=== PATIENT | male | born 1940 | race Caucasian/White ===

== ENCOUNTER → 2017-03-03 | Outpatient (CLI) | payer OTHER | LOC: CIMAGING 13:55 | PROVIDERS: ATTEND Family Medicine | DX: R91.8 Other nonspecific abnormal finding of lung field (principal); N20.0 Calculus of kidney; I25.10 Atherosclerotic heart disease of native coronary artery without angina pectoris; Z85.46 Personal history of malignant neoplasm of prostate; Z87.891 Personal history of nicotine dependence | CPT/HCPCS: 71250-PO ==

== ENCOUNTER → 2018-02-19 | Outpatient (CLI) | payer OTHER | LOC: BHFA 09:30 | PROVIDERS: ATTEND Internal Medicine Interventional Cardiology | DX: I10 Essential (primary) hypertension (principal); E78.5 Hyperlipidemia, unspecified ==

== ENCOUNTER → 2018-03-02 | Outpatient (CLI) | payer OTHER | LOC: BHFA 15:30 | PROVIDERS: ATTEND Internal Medicine Cardiovascular Disease | DX: R07.9 Chest pain, unspecified (principal) ==

== ENCOUNTER 2018-03-27 06:37 | Day surgery (SDC) | payer OTHER ==
[2018-03-27] MEDS ORDERED: DIAZEPAM 5 MG TAB PO ONE (06:42)
[2018-03-27] MEDS ORDERED: ASPIRIN EC 325 MG TAB PO ONE ×2 (06:42→08:20)
[2018-03-27] MEDS ORDERED: diphenhydrAMINE 25 MG CAP PO ONE ×2 (06:42→08:19)
[2018-03-27] MEDS ORDERED: NS 1,000 ML IV ONE (06:42)
[2018-03-27] MEDS ORDERED: FAMOTIDINE 20 MG TAB PO ONE (06:42)
[2018-03-27 07:43] LABS: PLATELET COUNT 171 10^3/uL (150-400)
[2018-03-27 08:08] LABS: INR 1.02 (0.83-1.16); PROTIME(PATIENT) 13.6 SEC (12.0-15.0)
[2018-03-27] MEDS ORDERED: FAMOTIDINE 20 MG TAB ONE (08:20)
[2018-03-27] MEDS ORDERED: DIAZEPAM 5 MG TAB ONE (08:20)
[2018-03-27] MEDS ORDERED: HEPARIN 10,000 UNIT/10 ML MDV (1,000 UNIT/ML) ONE (09:01)
[2018-03-27] MEDS ORDERED: VERAPAMIL 5 MG/2 ML VIAL ONE (09:01)
[2018-03-27] MEDS ORDERED: fentaNYL 100 MCG/2 ML INJ ONE (09:01)
[2018-03-27] MEDS ORDERED: MIDAZOLAM 2 MG/2 ML VIAL ONE (09:01)
[2018-03-27] MEDS ORDERED: LIDOCAINE 1% 300 MG/30 ML SDV ONE (09:01)
[2018-03-27] MEDS ORDERED: IOPAMIDOL (ISOVUE-370) 150 ML BTL IV ONE (09:02)
--- NOTE | 2018-03-27 09:24 | PDPROPOC ---
Sedation Plan of Care Sedation Plan of Care: vital signs stable, mental status noted, patient educated of risks, benefits, alternatives, patient can tolerate sedation ASA Classification: ASA 2 Planned drugs: fentanyl, midazolam Mallampati Score: Class 1 Mallampati Reference Image: Patient passed 3-3-2 rule?: Yes
--- NOTE | 2018-03-27 09:24 | PDHPUP ---
History & Physical Update H&P update statement: This history and physical update is based on an assessment of the patient which was completed after admission or registration (within 24 hours), but prior to the surgery/procedure. H&P update: H&P reviewed & patient examined, no change in patient's condition since H&P completed
--- NOTE | 2018-03-27 10:00 | PDDXCAT ---
Diagnostic Cath Note - . 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 Normal LV systolic function with normal filling pressures Plan: Aggressive medical therapy and secondary prevention.
--- NOTE | 2018-03-27 11:27 | ECHO ---
[email or web address] [address] Main: [phone] Fax: Transthoracic Echocardiogram Name: TRE GONZALES MR#: [id number] Study Date: 03/27/2018 Study Time: 10:32 AM Date of : 1940 Age: 77 year(s) Height: 172.7 cm (68 in.) Weight: 92.99 kg (205 lb.) BSA: 2.07 m2 Gender: Male Examination: Echo Indication: assess pulmonary pressures and RV Image Quality: Adequate Contrast: Requested by: Devin Gutiérrez BP: 128 mmHg/70 mmHg Heart Rate: Rhythm: Indication: assess pulmonary pressures and RV Procedure Staff Touch Up Carver: Devika Urbina RDCS Reading Physician: Caitlin Prieto MD Requesting Provider: Conclusions: Normal size left ventricle. Mild concentric LV hypertrophy. No regional wall motion abnormality. Grade 1 diastolic dysfunction (abnormal relaxation). Mildly dilated right ventricle. Normal RV function. Mild mitral valve regurgitation is present. Mild aortic valve regurgitation is present. Mild tricuspid regurgitation is present. Right ventricular systolic pressure measures 30mmHg. No pericardial effusion. Measurements: Chambers Valvular Assessment AV/MV Valvular Assessment TV/PV Normal Normal Normal Name Value Range Name Value Range Name Value Range Ao Tasneem (2D): 3.1 cm (1.4 cm-2.6 AV Vmax: 1.36 m/s (1 m/s-1.7 TR Vmax: 2.51 mm/s ( - ) cm) m/s) TR PGmax: 25 mmHg ( - ) IVSd (2D): 1.1 cm (0.6 cm-1.1 AV maxP mmHg ( - ) syst. PAP: 30 mmHg ( - ) cm) AV meanP mmHg ( - ) PV Vmax: 0.76 m/s (0.6 m/s-0.9 LVDd (2D): 4.1 cm (4.2 cm-5.9 JANNET (VTI): 2.0 cm ( - ) m/s) cm) MV E Vmax: 0.63 m/s ( - ) PV PGmax: 2 mmHg ( - ) LVDs (2D): 2.9 cm (2.1 cm-4 MV A Vmax: 0.87 m/s ( - ) cm) MV E/A: 0.72 ( - ) LVPWd (2D): 1.1 cm (0.6 cm-1 cm) MV PHT: 0.080 s ( - ) LVOTd 1.9 cm 1.9 cm mm MVA (PHT): 2.8 s ( - ) LVEF (BP): 57 % (>=55 %) RVDd(2D): 3.0 cm (1.9 cm-3.8 cmmm) Patient: TRE GONZALES Study Date: 03/27/2018 Page 1 of 2 10:32 AM Continued Measurements: Chambers Valvular Assessment AV/MV Valvular Assessment TV/PV Name Value Name Value Name Value LADs: 3.0 cm MV DecTime: 246 m/s CVP (est.): 5 mmHg LADs Lon.8 cm MV E' Septal: 0.07 m/s LA Area: 18.7 cm2 MV E/E' Septal: 9.30 LA Volume: 52 ml MV E/E' Lateral: 12.20 LA Volume Index: 25.1 ml/m2 Additional Vessels Name Value Ao Ascendin.7 cm Findings: Left Ventricle: Normal size left ventricle. Mild concentric LV hypertrophy. Normal global systolic LV function. EF is 57 %. No regional wall motion abnormality. Grade 1 diastolic dysfunction (abnormal relaxation). Right Ventricle: Mildly dilated right ventricle. Normal RV function. Left Atrium: The left atrium is normal in size. Right Atrium: The right atrium is normal in size. Mitral Valve: The mitral valve is normal in appearance and function. Mild mitral valve leaflet calcification is present. Mild mitral valve regurgitation is present. No mitral stenosis is present. Aortic Valve: The aortic valve is tri-leaflet. Aortic sclerosis is present. Mild aortic valve regurgitation is present. No aortic valve stenosis is present. Tricuspid Valve: The tricuspid valve is normal in appearance and function. Mild tricuspid regurgitation is present. The pulmonary artery pressure is normal. Right ventricular systolic pressure measures 30mmHg. Pulmonic Valve: The pulmonic valve is normal in appearance and function. Trivial pulmonic valve regurgitation. Aorta: The aorta is normal. Normal size aortic root measuring 3.1 cm. Normal size ascending aorta measuring 2.7 cm. IVC: Subcostal technically difficult, IVC not well visualized. Pericardium: No pericardial effusion. No pleural effusion. (No Signature Object) Patient: TRE GONZALES Study Date: 03/27/2018 Page 2 of 2 10:32 AM [id number]
--- NOTE | 2018-03-28 06:38 | CPEKG ---
Test Reason : OPEN Blood Pressure : / mmHG Vent. Rate : 062 BPM Atrial Rate : 063 BPM P-R Int : 239 ms QRS Dur : 091 ms QT Int : 401 ms P-R-T Axes : 002 -10 -19 degrees QTc Int : 408 ms Sinus rhythm First degree AV block. Nonspecific T abnormalities, inferior leads Confirmed by David Baig ([id number]) on 03/28/2018 6:38:06 AM Referred By: Confirmed By:David Baig
== END 2018-03-27 13:27 | disposition home or self-care (01) ==
LOC: FCATH 06:37
PROVIDERS: ATTEND Internal Medicine Interventional Cardiology
DX: R94.39 Abnormal result of other cardiovascular function study (principal); R06.09 Other forms of dyspnea; I25.10 Atherosclerotic heart disease of native coronary artery without angina pectoris; E78.5 Hyperlipidemia, unspecified; I10 Essential (primary) hypertension; E11.9 Type 2 diabetes mellitus without complications; Z85.46 Personal history of malignant neoplasm of prostate
CPT/HCPCS: 93005; 93306; 93458; C1769; J1644; J2250; J3010; Q9967

== ENCOUNTER 2018-08-08 15:49 | Emergency (ER) | payer OTHER ==
[2018-08-08] MEDS ORDERED: TRANEXAMIC ACID 1,000 MG in NS 100 ML IV ONE (16:55)
--- NOTE | 2018-08-08 16:55 | EDPHY ---
H & P Stated Complaint: lip swelling, possible rx Time Seen by Provider: 08/08/18 15:54 HPI/ROS: CHIEF COMPLAINT: Lip swelling HISTORY OF PRESENT ILLNESS: 78-year-old male presents via EMS. Patient was at a picnic earlier today, outside, where he had some apple cider and hamburger. About 2 hr later he noticed the left side of his lower lip was swollen. He presented to an urgent care and was thought to potentially be having an allergic reaction. Patient received epinephrine, Benadryl, ranitidine, and Solu -Medrol. There was also question as to whether not the patient could been stung on the lip by a bee although he denies feeling any bite. He was then transported to the emergency department. On arrival here the patient looks well. He has no rash or itching. No stridor. No complaints of shortness of breath or chest pain. Swelling is limited to the left side of the lower lip. REVIEW OF SYSTEMS: A comprehensive 10 system review of systems was reviewed and is otherwise negative aside from elements mentioned in the history of present illness and medical decision making. PAST MEDICAL HISTORY: Hypertension, on enalapril. SOCIAL HISTORY: . Nonsmoker. Primary care physician is Patricia Almeida. VITAL SIGNS Reviewed by me. GENERAL: Pleasant elderly male in no acute distress. HEENT: Atraumatic. Eyes: No icterus, no injection. No eyelid edema. No rash. Lower lip, limited to the left side, is swollen with angioedema. No obvious bite site is noted. No tongue swelling. No submandibular swelling. No uvular enlargement. No hard palate swelling. Mouth: moist mucous membranes. No erythema or lesions. Neck: supple with no adenopathy. No stridor. LUNGS: Clear to auscultation bilaterally, no wheezes, rhonchi or rales. CARDIAC: Regular rate and rhythm, no rubs, murmurs or gallops. ABDOMEN: Soft, nontender, nondistended, bowel sounds normal. BACK: No CVA tenderness. EXTREMITIES: No trauma. No edema. Range of motion is normal throughout. NEURO: Alert and oriented, grossly nonfocal. SKIN: Warm and dry, no rash. PSYCHIATRIC: Normal mentation, no agitation. - Personal History Current Tetanus Diphtheria and Acellular Pertussis (TDAP): Yes - Medical/Surgical History Hx Asthma: No Hx Chronic Respiratory Disease: No Hx Diabetes: No Hx Cardiac Disease: Yes Hx Renal Disease: No Hx Cirrhosis: No Hx Alcoholism: No Hx HIV/AIDS: No Hx Splenectomy or Spleen Trauma: No Other PMH: HYPERTENSION. Prostate cancer, appendectomy. EYE SURGERY - Social History Smoking Status: Former smoker Constitutional: Initial Vital Signs Temperature (C) 36.8 C 08/08/18 15:56 Heart Rate 96 08/08/18 15:56 Respiratory Rate 16 08/08/18 15:56 Blood Pressure 165/82 H 08/08/18 15:56 O2 Sat (%) 97 08/08/18 15:56 O2 Delivery Mode Room Air Allergies/Adverse Reactions: No Known Allergies Allergy (Verified 08/08/18 15:54) Home Medications: Medication Instructions Recorded Aspirin [Aspirin 81mg (*)] 81 mg PO DAILY 03/21/18 Enalapril Maleate [Vasotec 10 MG 10 mg PO DAILY 03/21/18 (*)] Enalapril/Hydrochlorothiazide 1 each PO DAILY 03/21/18 [Enalapril-Hctz 10-25 mg Tablet] Simvastatin [Simvastatin] 20 mg PO DAILY 03/21/18 Zolpidem Tartrate [Ambien 5MG (*)] 10 mg PO HS PRN 03/21/18 Hydrochlorothiazide [HCTZ (*)] 25 mg PO DAILY #30 tab 08/08/18 Medical Decision Making ED Course/Re-evaluation: 78-year-old male presents with angioedema of the left side of his lower lip. Unclear if this represents a allergic reaction, local reaction to a bite, or potentially angioedema associated with Robby inhibitors. Patient was observed in the emergency department apply ice to the lower lip. This seemed to help decrease the swelling. He received 1 g of TXA. His presented to the emergency department. On further evaluation, and frequent recurrent evaluations, the patient continues to improve. At no point in time to the swelling extend or increase, at no point in time that the patient have any angioedema of his hard palate, throat, uvula, or tongue. Patient and his family are anxious to be discharged. They understand that it is quite likely that this represents an Robby inhibitor associated angioedema and in that setting patient cannot be on any Robby inhibitors in the future. He also stand that the swelling may recur. He will remain with his tomorrow. He understands importance of return to the emergency department or accessing 911 if he develops recurrent lip or tongue swelling or develops any shortness of breath or difficulty swallowing. I did speak with patient's primary care physician, Dr. Almeida, who will see him in close follow-up. Patient was provided with a prescription for hydrochlorothiazide and understands that he should not be taking his usual enalapril-hydrochlorothiazide combination medication. Differential Diagnosis: Differential diagnoses for the patient's symptom complex was considered including but not limited to allergic reaction, angioedema, histamine related angioedema, hereditary angioedema, ROBBY-inhibitor associated angioedema. - Data Points Medications Given: Discontinued Medications Tranexamic Acid 1,000 mg/ (Sodium Chloride) 110 mls @ 660 mls/hr IV ONCE ONE Stop: 08/08/18 17:04 Last Admin: 08/08/18 17:45 Dose: 110 mls Departure - Departure Disposition: Home, Routine, Self-Care Clinical Impression: Angioedema, Possible reaction to robby inhibitor Condition: Good Instructions: Angioedema (ED) Additional Instructions: You will need to stop taking enalapril. I believe the lip swelling is reaction to your enalapril. I have given you a prescription for hydrochlorothiazide which you may continue to take. Please follow up with your primary care physician tomorrow or Monday without fail. Be very aware and observant with respect to any recurrent lip swelling. If you developed lip swelling, tongue swelling, difficulty swallowing, please return to the emergency department or seek care urgently. Referrals: Patricia Almeida MD [Primary Care Provider] - As per Instructions Prescriptions: Hydrochlorothiazide [HCTZ (*)] 25 mg PO DAILY #30 tab
[2018-08-08 18:46] VITALS: BP 146/83
[2018-08-08] MEDS ORDERED: EPINEPHrine KIT (USE FOR EPIPEN) 1 MG/ML IM ONE (19:00)
[2018-08-08] MEDS ORDERED: RANITIDINE 50 MG/2 ML VIAL ONE (19:00)
[2018-08-08] MEDS ORDERED: methylPREDNISolone SOD SUCC 125 MG/2 ML VIAL ONE (19:00)
== END 2018-08-08 18:44 | disposition home or self-care (01) ==
LOC: EDUNIT#
DX: T78.3XXA Angioneurotic edema, initial encounter (principal)
CPT/HCPCS: 96374; 99284; J0171; J1200; J2780; J2930